=== PATIENT | female | born 1940 | race Caucasian/White ===

== ENCOUNTER 2017-04-05 10:29 | Emergency (ER) | payer MEDICARE ==
[~2017-04-05] VITALS: Ht 170.2 cm; Wt 50.0 kg
[~2017-04-05 10:29] MED LIST: CIPR500T4 PO; FERR324T4 PO; FLAG500T PO; LEVA500T PO; LORT5TAB PO; PROT40TA PO
[2017-04-05] MEDS ORDERED: SODIUM CHLORIDE 0.9% FLUSH 10 ML FLUSH IVF PRN (10:45)
--- NOTE | 2017-04-05 10:50 | PD ---
HPI Chief Complaint: FEET PAIN AND SWELLING Time Seen by Provider: 10:37 Travel History International Travel<30 days: No Contact w/Intl Traveler<30days: No History of Present Illness HPI PT WAS DIAGNOSED WITH LUNG CA SEVERAL YEARS AGO AND SINCE RESECTION HAS NOT FOLLOWED UP WITH DOC, TODAY CAME IN WITH C/O SOB, COPD HX, SMOKES STILL...GIVEN SOLUMEDROL AND ALBUTEROL BY EMS, NOW UPON ARRIVAL IN NO RESP DISTRESS STATES SHE IS MORE CONCERN ABOUT HER FEET SWELLING AND PAIN PFSH Past Medical History Cancer: Yes (LUNG) Cardiovascular Problems: Yes High Cholesterol: No Diminished Hearing: No Endocrine: No Genitourinary: No Hypertension: Yes Immune Disorder: No Musculoskeletal: No Neurologic: No Psychiatric: No Reproductive: No Respiratory: Yes (EMPHYSEMA) PNEUMOCCOCAL Vaccine (Year): 2 Past Surgical History Gynecologic Surgery: Yes (hYSTERECTOMY) Thoracic Surgery: Yes Other Surgery: Yes (RLL LOBECTOMY) Social History Alcohol Use: No Tobacco Use: Yes (1PACK/ DAY) Substance Use: No Allergies-Medications (Allergen,Severity, Reaction): Coded Allergies: Iodine (Verified Allergy, Severe, SWELLING, 04/05/17) Penicillin (Verified Allergy, Severe, UNKNOWN, 04/05/17) Reported Meds & Prescriptions Reported Meds & Active Scripts Active Review of Systems Except as stated in HPI: all other systems reviewed are Neg Respiratory: Positive: Cough, Shortness of Breath Musculoskeletal: Positive: Edema (ARTUR LE WITH ERYTHEMA TO ARTUR LE ) Physical Exam Narrative GENERAL: SKIN: Warm and dry. HEAD: Atraumatic. Normocephalic. EYES: Pupils equal and round. No scleral icterus. No injection or drainage. ENT: No nasal bleeding or discharge. Mucous membranes pink and moist. NECK: Trachea midline. No JVD. CARDIOVASCULAR: Regular rate and rhythm. RESPIRATORY: No accessory muscle use. BILATERAL RONCHI, GOOD TV GASTROINTESTINAL: Abdomen soft, non-tender, nondistended. Hepatic and splenic margins not palpable. MUSCULOSKELETAL: Extremities without clubbing, cyanosis, or edema. No obvious deformities. ARTUR LE EDEMA 3+ UP TO KNEES, WITH ERYTHEMA AROUND BOTH FEET LEFT WORSE THAN RIGHT, WEEPING IN SOCK DISTRIBUTION NEUROLOGICAL: Awake and alert. No obvious cranial nerve deficits. Motor grossly within normal limits. Five out of 5 muscle strength in the arms and legs. Normal speech. PSYCHIATRIC: Appropriate mood and affect; insight and judgment normal. Data Data Last Documented VS Vital Signs Date Time Temp Pulse Resp B/P Pulse Ox O2 Delivery O2 Flow Rate FiO2 04/05/17 13:51 72 18 122/65 95 Nasal Cannula 04/05/17 12:50 4 04/05/17 10:53 98.1 Orders Complete Blood Count With Diff (04/05/17 10:45) Comprehensive Metabolic Panel (04/05/17 10:45) B-Type Natriuretic Peptide (04/05/17 10:45) Act Partial Throm Time (Ptt) (04/05/17 10:45) Prothrombin Time / Inr (Pt) (04/05/17 10:45) Ckmb (Isoenzyme) Profile (04/05/17 10:45) Troponin I (04/05/17 10:45) Urinalysis - C+S If Indicated (04/05/17 10:45) Blood Culture (04/05/17 10:45) Iv Access Insert/Monitor (04/05/17 10:45) Electrocardiogram (04/05/17 10:45) Ecg Monitoring (04/05/17 10:45) Oximetry (04/05/17 10:45) Oxygen Administration (04/05/17 10:45) Chest, Single Ap (04/05/17 10:45) Sodium Chloride 0.9% Flush (Ns Flush) (04/05/17 10:45) Us Leg Venous Doppler Bilat (04/05/17 10:45) Ct Thorax/ Chest Wo Iv Contras (04/05/17 ) Clindamycin Inj (Cleocin Inj) (04/05/17 13:00) Laboratory Tests Test 04/05/17 04/05/17 11:00 12:10 White Blood Count 4.8 TH/MM3 (4.0-11.0) Red Blood Count 4.48 MIL/MM3 (4.00-5.30) Hemoglobin 13.3 GM/DL (11.6-15.3) Hematocrit 40.4 % (35.0-46.0) Mean Corpuscular Volume 90.3 FL (80.0-100.0) Mean Corpuscular Hemoglobin 29.6 PG (27.0-34.0) Mean Corpuscular Hemoglobin 32.8 % Concent (32.0-36.0) Red Cell Distribution Width 14.7 % (11.6-17.2) Platelet Count 287 TH/MM3 (150-450) Mean Platelet Volume 8.1 FL (7.0-11.0) Neutrophils (%) (Auto) 58.6 % (16.0-70.0) Lymphocytes (%) (Auto) 31.9 % (9.0-44.0) Monocytes (%) (Auto) 6.3 % (0.0-8.0) Eosinophils (%) (Auto) 2.6 % (0.0-4.0) Basophils (%) (Auto) 0.6 % (0.0-2.0) Neutrophils # (Auto) 2.8 TH/MM3 (1.8-7.7) Lymphocytes # (Auto) 1.5 TH/MM3 (1.0-4.8) Monocytes # (Auto) 0.3 TH/MM3 (0-0.9) Eosinophils # (Auto) 0.1 TH/MM3 (0-0.4) Basophils # (Auto) 0.0 TH/MM3 (0-0.2) CBC Comment DIFF FINAL Differential Comment Prothrombin Time 11.4 SEC (9.8-11.6) Prothromb Time International 1.0 RATIO Ratio Activated Partial 23.6 SEC Thromboplast Time (24.3-30.1) Sodium Level 143 MEQ/L (136-145) Potassium Level 3.9 MEQ/L (3.5-5.1) Chloride Level 103 MEQ/L (98-107) Carbon Dioxide Level 37.1 MEQ/L (21.0-32.0) Anion Gap 3 MEQ/L (5-15) Blood Urea Nitrogen 24 MG/DL (7-18) Creatinine 0.71 MG/DL (0.50-1.00) Estimat Glomerular Filtration 80 ML/MIN (>89) Rate Random Glucose 116 MG/DL (74-106) Calcium Level 9.4 MG/DL (8.5-10.1) Total Bilirubin 0.3 MG/DL (0.2-1.0) Aspartate Amino Transf 12 U/L (15-37) (AST/SGOT) Alanine Aminotransferase 16 U/L (10-53) (ALT/SGPT) Alkaline Phosphatase 59 U/L (45-117) Total Creatine Kinase 27 U/L (26-192) Troponin I 0.03 NG/ML (0.02-0.05) B-Type Natriuretic Peptide 184 PG/ML (0-100) Total Protein 6.4 GM/DL (6.4-8.2) Albumin 2.9 GM/DL (3.4-5.0) Urine Color YELLOW (YELLW/STRAW) Urine Turbidity CLEAR (CLEAR) Urine pH 5.5 (5.0-8.5) Urine Specific [place] 1.032 (1.002-1.035) Urine Protein TRACE mg/dL (NEG-TRACE) Urine Glucose (UA) NEG mg/dL (NEG) Urine Ketones NEG mg/dL (NEG) Urine Occult Blood NEG (NEG) Urine Nitrite NEG (NEG) Urine Bilirubin NEG (NEG) Urine Urobilinogen 2.0 MG/DL (LESS THAN 2.0) Urine Leukocyte Esterase NEG (NEG) Urine RBC 1 /hpf (0-3) Urine WBC LESS THAN 1 /hpf (0-5) Urine Mucus FEW /lpf (OCC) Microscopic Urinalysis Comment CULT NOT INDICATED Labs Laboratory Tests Test 04/05/17 04/05/17 11:00 12:10 White Blood Count 4.8 TH/MM3 Red Blood Count 4.48 MIL/MM3 Hemoglobin 13.3 GM/DL Hematocrit 40.4 % Mean Corpuscular Volume 90.3 FL Mean Corpuscular Hemoglobin 29.6 PG Mean Corpuscular Hemoglobin 32.8 % Concent Red Cell Distribution Width 14.7 % Platelet Count 287 TH/MM3 Mean Platelet Volume 8.1 FL Neutrophils (%) (Auto) 58.6 % Lymphocytes (%) (Auto) 31.9 % Monocytes (%) (Auto) 6.3 % Eosinophils (%) (Auto) 2.6 % Basophils (%) (Auto) 0.6 % Neutrophils # (Auto) 2.8 TH/MM3 Lymphocytes # (Auto) 1.5 TH/MM3 Monocytes # (Auto) 0.3 TH/MM3 Eosinophils # (Auto) 0.1 TH/MM3 Basophils # (Auto) 0.0 TH/MM3 CBC Comment DIFF FINAL Differential Comment Prothrombin Time 11.4 SEC Prothromb Time International 1.0 RATIO Ratio Activated Partial 23.6 SEC Thromboplast Time Sodium Level 143 MEQ/L Potassium Level 3.9 MEQ/L Chloride Level 103 MEQ/L Carbon Dioxide Level 37.1 MEQ/L Anion Gap 3 MEQ/L Blood Urea Nitrogen 24 MG/DL Creatinine 0.71 MG/DL Estimat Glomerular Filtration 80 ML/MIN Rate Random Glucose 116 MG/DL Calcium Level 9.4 MG/DL Total Bilirubin 0.3 MG/DL Aspartate Amino Transf 12 U/L (AST/SGOT) Alanine Aminotransferase 16 U/L (ALT/SGPT) Alkaline Phosphatase 59 U/L Total Creatine Kinase 27 U/L Troponin I 0.03 NG/ML B-Type Natriuretic Peptide 184 PG/ML Total Protein 6.4 GM/DL Albumin 2.9 GM/DL Urine Color YELLOW Urine Turbidity CLEAR Urine pH 5.5 Urine Specific [place] 1.032 Urine Protein TRACE mg/dL Urine Glucose (UA) NEG mg/dL Urine Ketones NEG mg/dL Urine Occult Blood NEG Urine Nitrite NEG Urine Bilirubin NEG Urine Urobilinogen 2.0 MG/DL Urine Leukocyte Esterase NEG Urine RBC 1 /hpf Urine WBC LESS THAN 1 /hpf Urine Mucus FEW /lpf Microscopic Urinalysis Comment CULT NOT INDICATED MDM Medical Decision Making Medical Screen Exam Complete: Yes Emergency Medical Condition: Yes Interpretation(s) NST 79, MOTION ARTIFACT, NO STEMI PATTERN Differential Diagnosis CHF/CKD/PERIPHERAL EDEMA/CELLULITIS/ Narrative Course SEE ABOVE Diagnosis Primary Impression: COPD exacerbation Additional Impressions: PERIPHERAL EDEMA DUE TO HYPOALBUNEMIA LEFT FOOT CELLULITIS WITHOUT ABSCESS Patient Instructions: General Instructions Med/Other Pt SpecificInfo: Prescription(s) given Scripts Furosemide (Lasix)40 Mg Tab40 Mg PO DAILY #6 TAB Ref 0 Prov:Minh Polanco MD 04/05/17 Doxycycline Hyclate 100 Mg Fjo613 Mg PO BID #20 CAP Prov:Minh Polanco MD 04/05/17 Sulfamethoxazole-Trimethoprim (Bactrim DS)800-160 Mg Tab1 Tab PO BID #20 TAB Prov:Minh Polanco MD 04/05/17 Disposition: 01 DISCHARGE HOME Condition: Stable Minh Polanco MD Apr 05, 2017 10:50
[2017-04-05 10:53] VITALS: BP 173/78; PULSE 72; RESP 20; TEMP 98.1; O2SAT 89
[2017-04-05 10:56] VITALS: O2SAT 97
--- NOTE | 2017-04-05 11:18 | RADRPT ---
EXAM DATE/TIME: 04/05/2017 10:50 [facility] COMPARISON: No previous studies available for comparison. INDICATIONS : Shortness of breath. MEDICAL HISTORY : None. SURGICAL HISTORY : None. ENCOUNTER: Initial ACUITY: 1 week PAIN SCORE: 0/10 LOCATION: Bilateral chest FINDINGS: A single view of the chest demonstrates the lungs to be symmetrically aerated without evidence of mas s, infiltrate or effusion. There is a linear interface laterally in the upper right chest which coul d represent a pleural reflection or skin fold. The space between the lateral chest and linear area i mages 11 mm. The cardiomediastinal contours are unremarkable. Osseous structures are intact. CONCLUSION: Equivocal finding suggesting either a superolateral pneumothorax or skin fold superolateral right [address]. Recommend performing an expiratory view of the chest to evaluate for possible pneumothorax. Elvis Askew MD on April 05, 2017 at 11:13 Board Certified Radiologist. This report was verified electronically.
[2017-04-05 11:22] LABS: AUTOMATED NEUTROPHIL # 2.8 TH/MM3 (1.8-7.7); BASOPHIL % 0.6 % (0.0-2.0); EOSINOPHIL # 0.1 TH/MM3 (0-0.4); EOSINOPHIL % 2.6 % (0.0-4.0); HEMATOCRIT 40.4 % (35.0-46.0); HEMO FLAGS DIFF FINAL; LYMPH % 31.9 % (9.0-44.0); LYMPHOCYTE # 1.5 TH/MM3 (1.0-4.8); MEAN CELL VOLUME 90.3 FL (80.0-100.0); MEAN CORPUSCULAR HEMOGLOBIN 29.6 PG (27.0-34.0); MEAN CORPUSCULAR HGB CONC 32.8 % (32.0-36.0); MONO % 6.3 % (0.0-8.0); NEUT % 58.6 % (16.0-70.0); PLATELET COUNT 287 TH/MM3 (150-450); RED BLOOD COUNT 4.48 MIL/MM3 (4.00-5.30); RED CELL DISTRIBUTION WIDTH 14.7 % (11.6-17.2); WHITE BLOOD COUNT 4.8 TH/MM3 (4.0-11.0)
[2017-04-05 11:35] LABS: APTT (PATIENT) 23.6 SEC (24.3-30.1); PROTHROMBIN TIME - PATIENT 11.4 SEC (9.8-11.6)
[2017-04-05 11:43] LABS: ALT (GPT) 16 U/L (10-53); ANION GAP 3 MEQ/L (5-15); AST (GOT) 12 U/L (15-37); BICARBONATE 37.1 MEQ/L (21.0-32.0); BLOOD UREA NITROGEN 24 MG/DL (7-18); CHLORIDE 103 MEQ/L (98-107); GLOMERULAR FILTRATION RATE 80 ML/MIN (>89); POTASSIUM 3.9 MEQ/L (3.5-5.1); SODIUM (NA) 143 MEQ/L (136-145)
[2017-04-05 11:47] LABS: ALKALINE PHOSPHATASE 59 U/L (45-117); TOTAL BILIRUBIN ADULT 0.3 MG/DL (0.2-1.0)
[2017-04-05 11:48] LABS: CREATINE KINASE 27 U/L (26-192)
--- NOTE | 2017-04-05 11:59 | RADRPT ---
EXAM DATE/TIME: 04/05/2017 11:04 [facility] COMPARISON: No previous studies available for comparison. INDICATIONS : Bilateral leg swelling worst on left. MEDICAL HISTORY : Hypertension. Chronic obstructive pulmonary disease. Emphysema. Lung CA. Bilateral leg edema. SURGICAL HISTORY : Hysterectomy. RLL lobeectomy. ENCOUNTER: Initial ACUITY: 1 week PAIN SCORE: 6/10 LOCATION: Bilateral legs. TECHNIQUE: Venous ultrasound of the left and right leg was performed from the inguinal ligament to the proximal calf. Real-time, color Doppler and spectral tracing, compression and augmentation techniques were us ed. FINDINGS: RIGHT LEG: There is normal compressibility of the deep venous system from the inguinal region to the proximal ca lf. No echogenic clot is seen in the lumen of the common femoral, femoral, popliteal, and posterior tibial veins. There is a normal response of the venous system to proximal and distal augmentation an d respiration. Popliteal cyst measuring 6.6 x 1.6 x 2.6 cm. LEFT LEG: There is normal compressibility of the deep venous system from the inguinal region to the proximal ca lf. No echogenic clot is seen in the lumen of the common femoral, femoral, popliteal, and posterior tibial veins. There is a normal response of the venous system to proximal and distal augmentation an d respiration. Popliteal cyst measuring 4.5 x 1.1 x 2.8 cm. CONCLUSION: The study is negative for deep venous thrombosis bilateral lower extremity. Elvis Askew MD on April 05, 2017 at 11:55 Board Certified Radiologist. This report was verified electronically.
[2017-04-05 12:33] LABS: BLOOD, URINE NEG (NEG); COMMENT (UR) CULT NOT INDICATED; CULTURE IF INDICATED CULT NOT INDICATED; GLUCOSE,URINE NEG (NEG); KETONE, URINE NEG (NEG); MUCUS URINE FEW /lpf (OCC); NITRITE,URINE NEG (NEG); PH, URINE 5.5 (5.0-8.5); URINE COLOR YELLOW (YELLW/STRAW)
[2017-04-05 12:50] VITALS: BP 156/67; PULSE 73; RESP 20; O2SAT 95
[2017-04-05] MEDS ORDERED: CLINDAMYCIN INJ 600 MG in SODIUM CHLORIDE 0.9% INJ 100 ML IV ONE (13:00)
[2017-04-05 13:51] VITALS: BP 122/65; PULSE 72; RESP 18; O2SAT 95
--- NOTE | 2017-04-05 14:44 | RADRPT ---
EXAM DATE/TIME: 04/05/2017 13:36 [facility] COMPARISON: No previous studies available for comparison. INDICATIONS : Evaluate for pneumothorax. RADIATION DOSE: 3.34 CTDIvol (mGy) MEDICAL HISTORY : Carcinoma, lung. Hypertension. Chronic obstructive pulmonary disease. SURGICAL HISTORY : None. ENCOUNTER: Initial ACUITY: 1 day PAIN SCALE: 8/10 LOCATION: Bilateral chest TECHNIQUE: Volumetric scanning of the chest was performed. Using automated exposure control and adjustment of t he mA and/or kV according to patient size, radiation dose was kept as low as reasonably achievable to obtain optimal diagnostic quality images. FINDINGS: LUNGS: Moderate to severe centrilobular emphysema and right basilar bullous change. Minimal dependent bibasi lar air space disease consistent with atelectasis. PLEURAE: No pneumothorax. AIRWAYS: 9 x 7 mm lesion in the dependent proximal trachea. MEDIASTINUM: Moderate to severe coronary artery calcifications. Heart is otherwise unremarkable. No gross descent no adenopathy. AXILLAE: Within normal limits. No lymphadenopathy. MUSCULOSKELETAL: Within normal limits for patient age. MISCELLANEOUS: The visualized upper abdominal organs demonstrate no acute abnormality. CONCLUSION: 1. Moderate to severe centrilobular emphysema with right basilar bullous change. No pneumothorax as q uestioned. 2. Moderate severe coronary artery calcifications. 3. Subcentimeter, 9 x 7 mm, lesion in the dependent proximal trachea likely reflects mucous. However, a tracheal mass cannot be entirely excluded. Clinical correlation is recommended. Fernandez Ramirez MD on April 05, 2017 at 14:14 Board Certified Radiologist. This report was verified electronically.
[2017-04-05] MEDS ORDERED: BACT800T5 PO (15:02)
[2017-04-05] MEDS ORDERED: DOXY100C PO (15:02)
[2017-04-05] MEDS ORDERED: FURO1TAB60 PO (15:02)
[2017-04-05 16:18] VITALS: BP 123/65
--- NOTE | 2017-04-06 18:02 | EKG ---
Date Performed: 04/05/2017 Time Performed: 10:41:03 PTAGE: 76 years EKG: Sinus rhythm SEPTAL MYOCARDIAL INFARCTION ABNORMAL ECG NO PREVIOUS TRACING DOCTOR: Frandy Darling Interpretating Date/Time 04/06/2017 18:00:19
== END 2017-04-05 16:20 | disposition home or self-care (01) ==
LOC: NEPC 10:29
DX: J44.1 Chronic obstructive pulmonary disease with (acute) exacerbation (principal); E88.09 Other disorders of plasma-protein metabolism, not elsewhere classified; R60.0 Localized edema; L03.116 Cellulitis of left lower limb; R94.31 Abnormal electrocardiogram [ECG] [EKG]; I10 Essential (primary) hypertension; F17.200 Nicotine dependence, unspecified, uncomplicated; Z85.118 Personal history of other malignant neoplasm of bronchus and lung; Z87.09 Personal history of other diseases of the respiratory system; Z86.79 Personal history of other diseases of the circulatory system
CPT/HCPCS: 71010; 71250; 80053; 81001; 82550; 83880; 84484; 85025; 85610; 85730; 87040; 93005; 93970; 96374